=== PATIENT | male | born 1990 | race Caucasian/White ===

== ENCOUNTER 2021-01-22 07:29 | Observation (INO) ==
[2021-01-22] MEDS ORDERED: Ondansetron 4 MG/2 ML VIAL IVP PRN (11:03)
[2021-01-22] MEDS ORDERED: Naloxone 0.4 MG/ML INJ IVP PRN (11:03)
[2021-01-22] MEDS ORDERED: Perflutren Lipid Microsphere 1.3 ML in 0.9 % Sodium Chloride 8.7 ML IVP PRN (11:31)
[2021-01-22 12:02] LABS: Basophils % 0.4 %; Eosinophils # 0.2 K/mcL (0.0-0.6); Eosinophils % 1.4 %; Hematocrit 40.4 % (37.5-50.1); Immature Granulocytes % 0.9 % (0-4); Lymphocytes # 4.2 K/mcL (0.6-4.6); Lymphocytes % 40.2 %; Mean Corpuscular HGB Conc 34.7 g/dL (31.6-35.5); Mean Corpuscular Hemoglobin 29.4 pg (28.0-33.3); Mean Corpuscular Volume 84.9 fL (83.0-100.0); Mean Platelet Volume 8.6 fL (9.4-12.4); Monocytes # 0.7 K/mcL (0.0-1.3); Monocytes % 6.7 %; Neutrophils # 5.3 K/mcL (1.6-8.9); Platelet Count 248 K/mcL (140-400); Red Blood Count 4.76 M/mcL (4.19-5.50); Red Cell Distribution Width 13.2 % (11.5-14.5); Segmented Neutrophils % 50.4 %; White Blood Count 10.5 K/mcL (4.3-11.1)
[2021-01-22] MEDS: carvediloL 6.25 MG TABLET PO SCH ×2 (12:15→16:15)
[2021-01-22 12:24] LABS: BUN/Creatinine Ratio 24 (6-26); Blood Urea Nitrogen 19 mg/dL (6-20); Carbon Dioxide 23 mEq/L (23-29); Chloride 108 mEq/L (98-107); Chol/HDL Ratio 4.3 (0-4.9); Cholesterol 202 mg/dL (< 200); Glucose 85 mg/dL (70-105); HDL Cholesterol 47 mg/dL (40-59); LDL Cholesterol,Calculated 81 mg/dL (< 100); Osmolality,Calculated 292 (280-300); Potassium 3.7 mEq/L (3.5-5.1); Sodium 140 mEq/L (136-145); Triglycerides 369 mg/dL (< 150); eGFR For African Americans > 60 (> 60); eGFR For Non-African Americans > 60 (> 60)
[2021-01-22] MEDS ORDERED: *HR* Heparin 5,000 UNIT/ML VIAL IVP PRN ×2 (12:31)
[2021-01-22] MEDS ORDERED: *HR* Heparin 5,000 UNIT/ML VIAL IVP ONE (12:31)
[2021-01-22 12:40] LABS: Magnesium 2.3 mg/dL (1.6-2.6); Troponin I 1.07 ng/mL (< 0.04)
[2021-01-22] MEDS ORDERED: Heparin 25,000UNIT/250ML 1/2NS 25,000 UNIT/250 ML IV.SOLN IVC SCH (12:45)
[2021-01-22] MEDS ORDERED: Heparin 25,000 UNIT/250 ML 25,000 UNIT/250 ML IV.SOLN IVC SCH (13:00)
[2021-01-22] MEDS: lisinopriL 5 MG TABLET PO SCH (13:08)
[2021-01-22 13:59] LABS: Hematocrit 41.3 % (37.5-50.1); Hemoglobin 14.1 g/dL (12.9-16.9); Mean Corpuscular HGB Conc 34.1 g/dL (31.6-35.5); Mean Corpuscular Hemoglobin 29.1 pg (28.0-33.3); Mean Corpuscular Volume 85.3 fL (83.0-100.0); Mean Platelet Volume 9.1 fL (9.4-12.4); Platelet Count 243 K/mcL (140-400); Red Blood Count 4.84 M/mcL (4.19-5.50); Red Cell Distribution Width 13.2 % (11.5-14.5); White Blood Count 10.2 K/mcL (4.3-11.1)
[2021-01-22 14:02] LABS: Heparin anti-factor XA UFH 0.96 IU/mL (0.30-0.70); INR 1.1; Prothrombin Time 11.8 Seconds (9.4-12.1)
[2021-01-22 14:20] LABS: Estimated Average Glucose 88 mg/dl; Hemoglobin A1C 4.7 %
[2021-01-22] MEDS ORDERED: Budesonide/Formoterol 80/4.5 1 PUFF INH IH PRN (15:37)
[2021-01-22] MEDS: Azithromycin 250 MG TABLET PO SCH (16:15)
[2021-01-22] MEDS: predniSONE 20 MG TABLET PO SCH (19:58)
[2021-01-23 04:47] LABS: Basophils % 0.4 %; Eosinophils % 0.2 %; Hematocrit 42.6 % (37.5-50.1); Hemoglobin 14.9 g/dL (12.9-16.9); Lymphocytes # 2.3 K/mcL (0.6-4.6); Lymphocytes % 22.6 %; Mean Corpuscular Hemoglobin 29.3 pg (28.0-33.3); Mean Corpuscular Volume 83.9 fL (83.0-100.0); Mean Platelet Volume 8.8 fL (9.4-12.4); Monocytes # 0.3 K/mcL (0.0-1.3); Monocytes % 3.2 %; Neutrophils # 7.5 K/mcL (1.6-8.9); Platelet Count 248 K/mcL (140-400); Red Blood Count 5.08 M/mcL (4.19-5.50); Red Cell Distribution Width 12.7 % (11.5-14.5); Segmented Neutrophils % 72.6 %; White Blood Count 10.3 K/mcL (4.3-11.1)
[2021-01-23 05:33] LABS: BUN/Creatinine Ratio 22 (6-26); Blood Urea Nitrogen 15 mg/dL (6-20); Calcium 9.1 mg/dL (8.6-10.3); Carbon Dioxide 22 mEq/L (23-29); Chloride 104 mEq/L (98-107); Glucose 112 mg/dL (70-105); Osmolality,Calculated 284 (280-300); Potassium 4.2 mEq/L (3.5-5.1); Sodium 136 mEq/L (136-145); eGFR For African Americans > 60 (> 60); eGFR For Non-African Americans > 60 (> 60)
[2021-01-23] MEDS: carvediloL 6.25 MG TABLET PO SCH (08:45)
[2021-01-23] MEDS: lisinopriL 5 MG TABLET PO SCH (08:46)
[2021-01-23] MEDS: Azithromycin 250 MG TABLET PO SCH (08:46)
[2021-01-23] MEDS: predniSONE 20 MG TABLET PO SCH (08:46)
[2021-01-23] MEDS ORDERED: Aspirin 81 MG TAB.CHEW PO SCH (09:00)
[2021-01-23 11:51] VITALS: BP 147/101; PULSE 84; TEMP 97.8; O2SAT 95
== END 2021-01-23 14:12 | disposition home or self-care (01) ==
LOC: 2NENU → SUATTDRO 10:47
PROVIDERS: ADMIT Internal Medicine; ATTEND Internal Medicine